=== PATIENT | male | born 1935 | race Caucasian/White ===

== ENCOUNTER 2018-12-25 10:42 | Outpatient (CLI) | payer MEDICARE ==
[~2018-12-25 10:42] MED LIST: AMLO10TA4 PO; ASPI-496 PO; CLOP75TA52 PO; FINA5TAB4 PO; LEVO137T3 PO; LOSA100T14 PO; METF500T27 PO; METO-93 PO; REGADENOSON 0.4 MG/5 ML SYRINGE ONE; SIMV40TA3 PO; TAMS0.4C2 PO
== END 2018-12-25 23:59 | disposition home or self-care (01) ==
LOC: CVU 10:42 → CFH 23:59
PROVIDERS: ATTEND Internal Medicine Cardiovascular Disease
DX: I08.0 Rheumatic disorders of both mitral and aortic valves (principal); I65.23 Occlusion and stenosis of bilateral carotid arteries; I10 Essential (primary) hypertension
CPT/HCPCS: 78452; 93017; 93306; A9502; J2785

== ENCOUNTER 2019-08-04 16:51 | Emergency (ER) | payer MEDICARE ==
[~2019-08-04] VITALS: Ht 177.8 cm; Wt 80.3 kg
[~2019-08-04 16:51] MED LIST changes: -REGADENOSON 0.4 MG/5 ML SYRINGE ONE; +SIMV40TA20 PO; -SIMV40TA3 PO
[2019-08-04] MEDS ORDERED: SODIUM CHLORIDE FLUSH 10ML SYR IVF ONE ×2 (18:00→18:30)
[2019-08-04] MEDS ORDERED: ONDANSETRON 2MG/ML, 2ML ONE (18:15)
[2019-08-04] MEDS ORDERED: MORPHINE SULFATE 4 MG/ML, 1ML ONE (18:16)
[2019-08-04 18:27] LABS: BASOPHILS # (AUTO) 0.13 x10^3/uL (0-0.1); BASOPHILS % (AUTO) 1 % (0-1); EOSINOPHILS # (AUTO) 0.56 x10^3/uL (0-0.4); EOSINOPHILS % (AUTO) 5 % (1-7); LYMPHOCYTES % (AUTO) 11 % (22-44); MD NO; MEAN CORPUSCULAR HEMOGLOBIN 32.7 pg (27.5-34.5); MEAN CORPUSCULAR HGB CONC 33.9 g/dL (33.2-36.2); MEAN CORPUSCULAR VOLUME 96.5 fL (81-97); MEAN PLATELET VOLUME 8.6 fL (7.4-10.4); MONOCYTES # (AUTO) 0.96 x10^3/uL (0.2-0.8); MONOCYTES % (AUTO) 9 % (2-9); NEUTROPHILS # (AUTO) 7.77 x10^3/uL (1.8-6.8); NEUTROPHILS % (AUTO) 73 % (42-75); PLATELET COUNT 160 x10^3/uL (130-400); RED BLOOD COUNT 4.88 x10^6/uL (4.38-5.82); RED CELL DISTRIBUTION WIDTH 13.4 % (9.4-14.8)
[2019-08-04] MEDS ORDERED: SODIUM CHLORIDE 0.9% 1,000ML IVBOLUS ONE (18:30)
[2019-08-04] MEDS ORDERED: MORPHINE SULFATE 4 MG/ML, 1ML IVPush PRN (18:30)
[2019-08-04] MEDS ORDERED: ONDANSETRON 2MG/ML, 2ML IVPush ONE (18:30)
[2019-08-04 18:34] LABS: ALANINE AMINOTRANSFERASE 16 U/L (12-78); ALBUMIN 3.7 g/dL (3.4-5.0); ANION GAP 9 mmol/L (5-15); CALCIUM 8.9 mg/dL (8.5-10.1); CHLORIDE 107 mmol/L (98-107); CREATININE 0.81 mg/dL (0.7-1.3)
[2019-08-04 18:45] LABS: ALKALINE PHOSPHATASE 98 U/L (45-117); BILIRUBIN,TOTAL 0.9 mg/dL (0.2-1.0); FREE T4 (FREE THYROXINE) 1.28 ng/dL (0.76-1.46)
--- NOTE | 2019-08-04 18:49 | NUR ---
Nima chen in [facility] - 08/04/19 at 1849 by TOMASZ report given to jon
--- NOTE | 2019-08-04 18:51 | NUR ---
report given to jon
[2019-08-04 18:52] LABS: MICROSCOPIC AUTO
--- NOTE | 2019-08-04 18:58 | NUR ---
REPORT RECIEVED FROM SHERRIE SHEARER. PLAN OF CARE DISCUSSED.
[2019-08-04] MEDS ORDERED: OMNIPAQUE 350 MG/ML, 100ML BOTTLE ONE (18:59)
--- NOTE | 2019-08-04 18:59 | NUR ---
PATIENT BACK FROM CT AT THIS TIME
[2019-08-04 19:00] LABS: CULTURE INDICATED? YES
--- NOTE | 2019-08-04 19:29 | NUR ---
PATIENT AMBULATORY WITH STEADY GAIT TO RESTROOM
--- NOTE | 2019-08-04 19:57 | NUR ---
GIVEN MAG CITRATE TO TAKE HOME PER PHYSICIAN ORDER (MD BRITTNI)
[2019-08-04] MEDS ORDERED: MAGNESIUM CITRATE 300ML ORAL SOL ONE (19:59)
[2019-08-04] MEDS ORDERED: MAGNESIUM CITRATE 300ML ORAL SOL PO ONE (20:00)
[2019-08-04] MEDS ORDERED: METOPROLOL 1 MG/ML, 5ML ONE (20:02)
--- NOTE | 2019-08-04 20:21 | NUR ---
PATIENT MEDICATED PER EMAR, TOLERATED WELL.
[2019-08-04] MEDS ORDERED: METOPROLOL 1 MG/ML, 5ML IVPush ONE (20:30)
--- NOTE | 2019-08-04 21:00 | NUR ---
PATIENT DESAT ON RA TO 89%, PLACED BACK ON O2 AT 2L NC.
--- NOTE | 2019-08-04 21:29 | NUR ---
SPOKE WITH DR. JAVIER ABOUT NOT BEING ABLE TO TITRATE DOWN O2 TO MAINTAIN SPO2 GREATER TAHN 90% ON RA. DR. JAVIER TO ORDER CXR
--- NOTE | 2019-08-04 21:30 | NUR ---
PATIENT TO XRAY AT THIS TIME
[2019-08-04 21:39] VITALS: BP 128/86
== END 2019-08-04 22:16 | disposition home or self-care (01) ==
LOC: ED 22:10
DX: K59.00 Constipation, unspecified (principal); R10.32 Left lower quadrant pain; R10.31 Right lower quadrant pain; E11.9 Type 2 diabetes mellitus without complications; E78.5 Hyperlipidemia, unspecified
CPT/HCPCS: 36415; 71046; 74177; 80053; 81001; 83690; 84439; 84443; 85025; 87086; 93005; 96374; 96375; 99284; J2270; J2405; J7030; Q9967

== ENCOUNTER 2020-03-11 07:40 | Emergency (ER) | payer MEDICARE ==
[~2020-03-11] VITALS: Ht 177.8 cm; Wt 82.3 kg
--- NOTE | 2020-03-11 08:12 | NUR ---
first contact with pt. pt stated "i fell and hit on back of my head about 3 days ago. i have a culp and facial rash for three days." pt denies loc and no blood thinner. pt's aox4. resps even and unlabored. bp/spo2 monitors in place. call light within reach. pa at bedside evaluating at this time.
--- NOTE | 2020-03-11 08:53 | NUR ---
pt in ct at this time.
--- NOTE | 2020-03-11 09:29 | NUR ---
pt back to room from ct. [facility] in [facility]. pt's aox4. resps even and unlabored.
[2020-03-11] MEDS ORDERED: ACETAMINOPHEN 325 MG TABLET PO ONE (10:00)
[2020-03-11] MEDS ORDERED: ACETAMINOPHEN 325 MG TABLET ONE (10:00)
[2020-03-11 10:01] VITALS: BP 143/93
--- NOTE | 2020-03-11 10:03 | NUR ---
pt medicated per emar. pt tolerated well.
--- NOTE | 2020-03-11 10:07 | NUR ---
Patient given discharge instructions and they have confirmed that they understand the instructions.
== END 2020-03-11 10:08 | disposition home or self-care (01) ==
LOC: ED 08:28
DX: I62.03 Nontraumatic chronic subdural hemorrhage (principal); S09.90XA Unspecified injury of head, initial encounter; L03.211 Cellulitis of face; W01.0XXA Fall on same level from slipping, tripping and stumbling without subsequent striking against object, initial encounter; Y93.89 Activity, other specified; Y92.098 Other place in other non-institutional residence as the place of occurrence of the external cause; Y99.8 Other external cause status
CPT/HCPCS: 70450; 99284

== ENCOUNTER 2021-03-22 14:44 | Emergency (ER) | payer MEDICARE ==
[~2021-03-22] VITALS: Ht 175.3 cm; Wt 80.2 kg
[2021-03-22 16:01] LABS: BASOPHILS % (AUTO) 0 % (0-1); EOSINOPHILS % (AUTO) 0 % (1-7); LYMPHOCYTES % (AUTO) 8 % (22-44); MEAN CORPUSCULAR HEMOGLOBIN 33.2 pg (27.5-34.5); MEAN CORPUSCULAR HGB CONC 35.2 g/dL (33.2-36.2); MEAN PLATELET VOLUME 8.9 fL (7.4-10.4); MONOCYTES % (AUTO) 9 % (2-9); NEUTROPHILS % (AUTO) 83 % (42-75); PLATELET COUNT 166 x10^3/uL (130-400); RED BLOOD COUNT 4.73 x10^6/uL (4.38-5.82); RED CELL DISTRIBUTION WIDTH 13.9 % (9.4-14.8)
[2021-03-22 16:08] LABS: ALBUMIN 3.7 g/dL (3.4-5.0); ANION GAP 11 mmol/L (5-15); CALCIUM 8.8 mg/dL (8.5-10.1); CHLORIDE 92 mmol/L (98-107)
[2021-03-22 16:14] LABS: ALANINE AMINOTRANSFERASE 19 U/L (12-78); ALKALINE PHOSPHATASE 70 U/L (45-117); BILIRUBIN,TOTAL 1.8 mg/dL (0.2-1.0); CREATININE 0.99 mg/dL (0.7-1.3); TOTAL PROTEIN 7.8 g/dL (6.4-8.2)
[2021-03-22 16:27] LABS: MICROSCOPIC INDICATED
[2021-03-22 17:50] VITALS: BP 176/96
--- NOTE | 2021-03-22 17:52 | NUR ---
BP ELEVATED. PT STATES PT HASNT BEEN ABLE TO TAKE HIS HTN MEDS X LAST 2 DAYS. AMBULATORY BACK TO LOBBY.
--- NOTE | 2021-03-22 19:04 | NUR ---
PT PRESENTS TO ER WITH FOR VOMITTING SINCE YESTERDAY SINCE 3PM, PTS STATES THAT PT HAS BEEN THROWING UP A DARK GREENISH COLOR
[2021-03-22] MEDS ORDERED: ONDANSETRON 2MG/ML, 2ML ONE (19:45)
[2021-03-22] MEDS ORDERED: SODIUM CHLORIDE FLUSH 10ML SYR IVF ONE (20:00)
[2021-03-22] MEDS ORDERED: ONDANSETRON 2MG/ML, 2ML IVPush ONE (20:00)
[2021-03-22] MEDS ORDERED: OMNIPAQUE 350 MG/ML, 100ML BOTTLE ONE (20:08)
--- NOTE | 2021-03-22 21:44 | NUR ---
TASK RN: DC EDUCATION PROVIDED, PT DEMONSTRATES UNDERSTANDING. PT AMBULATED STEADILY TO DC WITH RN AND SO. TO TAKE TAXI HOME.
== END 2021-03-22 21:46 | disposition home or self-care (01) ==
LOC: ED 21:40
DX: S22.080A Wedge compression fracture of T11-T12 vertebra, initial encounter for closed fracture (principal); S32.029A Unspecified fracture of second lumbar vertebra, initial encounter for closed fracture; S32.049A Unspecified fracture of fourth lumbar vertebra, initial encounter for closed fracture; K52.9 Noninfective gastroenteritis and colitis, unspecified; K56.600 Partial intestinal obstruction, unspecified as to cause; I10 Essential (primary) hypertension; E11.9 Type 2 diabetes mellitus without complications; E78.5 Hyperlipidemia, unspecified; Z87.891 Personal history of nicotine dependence; X58.XXXA Exposure to other specified factors, initial encounter; Y93.89 Activity, other specified; Y92.89 Other specified places as the place of occurrence of the external cause; Y99.8 Other external cause status
CPT/HCPCS: 36415; 74021; 74177; 80053; 81001; 83690; 85025; 96374; 99285; J2405; Q9967